=== PATIENT | female | born 1985 | race Two or more races ===

== ENCOUNTER 2022-11-11 21:10 | Inpatient (IN) | payer MEDICAID ==
[~2022-11-11] VITALS: Ht 161.3 cm; Wt 97.5 kg
[2022-11-11] MEDS ORDERED: SODIUM CHLORIDE 0.9% 1000ML BAG (SEPSIS BOLUS) IV ONE (22:15)
[2022-11-11] MEDS ORDERED: CEFTRIAXONE 1 G PREMIX 50 ML IV ONE (22:15)
[2022-11-11 22:52] LABS: BASOPHILS % 0.5 % (0.0-2.0); EOSINOPHILS % 1.3 % (0.0-5.0); HEMATOCRIT. 38.3 % (36.0-48.0); LYMPHOCYTES % 18.1 % (20.0-50.0); MEAN CORPUSCULAR VOLUME 91.2 fL (81.0-99.0); MEAN PLATELET VOLUME 7.3 fl (7.4-10.4); MONOCYTES % 5.5 % (2.0-8.0); NEUTROPHILS % 74.6 % (40.0-76.0); PLATELET 340 x1000/uL (130-400); RED CELL DISTRIBUTION WIDTH 13.6 % (11.6-14.6)
[2022-11-11 23:03] LABS: CHLORIDE 103 mEq/L (98-107)
[2022-11-12 00:04] LABS: HCG SCREEN NEGATIVE
[2022-11-12] MEDS ORDERED: ASPIRIN 325MG EC TABLET PO ONE (00:30)
[2022-11-12] MEDS ORDERED: IOHEXOL-350 100 ML BOTTLE ONE (01:21)
[2022-11-12] MEDS ORDERED: METHYLENE BLUE 1% VIAL 1ML IV ONE (01:45)
[2022-11-12] MEDS ORDERED: KETOROLAC 15MG/ML VIAL IV ONE (02:45)
[2022-11-12] MEDS ORDERED: ASPIRIN 325MG EC TABLET PO NR (03:00)
[2022-11-12] MEDS: METHYLENE BLUE 50 MG/10 ML AMP IV NR (03:44)
[2022-11-12 03:58] LABS: SPECIFIC GRAVITY URINE 1.031 (1.005-1.030)
[2022-11-12 03:59] LABS: PROTEIN URINE 1+ (NEGATIVE)
[2022-11-12 04:00] LABS: KETONES URINE 1+ (NEGATIVE); LEUKOCYTE ESTERASE URINE 3+ (NEGATIVE); NITRITE URINE POSITIVE (NEGATIVE)
[2022-11-12 04:03] LABS: CLARITY URINE TURBID (CLEAR); COLOR URINE AMBER (YELLOW)
[2022-11-12 04:04] LABS: OCCULT BLOOD URINE NEGATIVE (NEGATIVE)
[2022-11-12 05:00] VITALS: BP 101/56
[2022-11-12] MEDS ORDERED: NALOXONE HCL 0.4MG/ML VIAL IV PRN (07:15)
[2022-11-12 08:00] VITALS: BP 95/48
[2022-11-12] MEDS ORDERED: IPRATROPIUM/ALBUTEROL 0.5-3(2.5)MG/3ML NEB HHN SCH (08:00)
[2022-11-12] MEDS ORDERED: ALBUTEROL (0.083%) 2.5MG/3ML NEB HHN SCH (08:00)
[2022-11-12] MEDS ORDERED: IPRATROPIUM BROMIDE (0.02%) 0.5MG/2.5ML NEB HHN SCH (08:00)
[2022-11-12] MEDS ORDERED: ENOXAPARIN 40MG/0.4ML SYR SUBCUT SCH (09:00)
[2022-11-12] MEDS: ENOXAPARIN 30MG/0.3ML SYR SUBCUT SCH ×2 (09:12→21:23)
[2022-11-12] MEDS: HYDROCODONE/ACETAMINOPHEN 5/325MG TABLET PO PRN ×3 (09:14→19:59)
[2022-11-12 09:22] LABS: BASOPHILS % 0.6 % (0.0-2.0); EOSINOPHILS % 2.2 % (0.0-5.0); HEMATOCRIT. 32.5 % (36.0-48.0); HEMOGLOBIN. 11.1 g/dL (12.0-16.0); LYMPHOCYTES % 19.6 % (20.0-50.0); MEAN CORPUSCULAR HEMOGLOBIN 31.3 pg (28.0-32.0); MEAN CORPUSCULAR VOLUME 91.6 fL (81.0-99.0); MEAN PLATELET VOLUME 7.5 fl (7.4-10.4); MONOCYTES % 5.4 % (2.0-8.0); NEUTROPHILS % 72.2 % (40.0-76.0); PLATELET 345 x1000/uL (130-400); RED BLOOD CELL COUNT 3.55 mill/uL (4.2-5.4)
[2022-11-12 09:48] LABS: CHLORIDE 107 mEq/L (98-107)
[2022-11-12] MEDS: CEFEPIME 1,000 MG in DEXTROSE 5% WATER 50 ML IV SCH ×2 (10:26→21:27)
[2022-11-12 12:00] VITALS: BP 103/52
[2022-11-12] MEDS: ASCORBIC ACID 500 MG TABLET PO SCH (14:30)
[2022-11-12 16:00] VITALS: BP 110/54
[2022-11-12 20:00] VITALS: BP 96/55
[2022-11-13] VITALS: BP 92/41
[2022-11-13 04:00] VITALS: BP 98/57
[2022-11-13 08:00] VITALS: BP 110/68
[2022-11-13] MEDS: CEFEPIME 1,000 MG in DEXTROSE 5% WATER 50 ML IV SCH (09:02)
[2022-11-13] MEDS: ASCORBIC ACID 500 MG TABLET PO SCH (09:02)
[2022-11-13] MEDS: ENOXAPARIN 30MG/0.3ML SYR SUBCUT SCH (09:02)
[2022-11-13] MEDS: HYDROCODONE/ACETAMINOPHEN 5/325MG TABLET PO PRN (10:20)
[2022-11-13] MEDS ORDERED: CIPR-263 MT (11:31)
[2022-11-13 12:00] VITALS: BP 107/57
[2022-11-13 12:03] VITALS: BP 110/68
== END 2022-11-13 12:40 | disposition home or self-care (01) | DRG 812 ==
LOC: ER 22:20 → MICUSO 11-12 02:14 → 7EST 11-12 04:42
PROVIDERS: ADMIT Internal Medicine; ATTEND Internal Medicine
DX: T39.8X1A Poisoning by other nonopioid analgesics and antipyretics, not elsewhere classified, accidental (unintentional), initial encounter (principal); A41.50 Gram-negative sepsis, unspecified; J96.01 Acute respiratory failure with hypoxia; N39.0 Urinary tract infection, site not specified; D74.9 Methemoglobinemia, unspecified; E11.9 Type 2 diabetes mellitus without complications; F17.210 Nicotine dependence, cigarettes, uncomplicated; Y92.89 Other specified places as the place of occurrence of the external cause
CPT/HCPCS: 36415; 71045; 71275; 76770; 80048; 80053; 81003; 83605; 83880; 84145; 84484; 84703; 85025; 85379; 87077; 87186; 93005; 93306; 94640; 99285; J0692; J0696; J1650; J1885; J7030; J7060; Q9967; Q9968